=== PATIENT | female | born 1990 | race Two or more races ===

== ENCOUNTER 2020-04-20 14:31 | Outpatient (CLI) | payer OTHER ==
[~2020-04-20] VITALS: Ht 180.3 cm; Wt 77.1 kg
[2020-04-20] MEDS ORDERED: SYMBICORT 80/10.2 GM (17:08)
[2020-04-20] MEDS ORDERED: PROAIR HFA8.5 GM (17:09)
[2020-04-20] MEDS ORDERED: METHYLPREDNISOLO8 MG (17:11)
== END 2020-04-20 15:00 | disposition home or self-care (01) ==
LOC: OFIC 805 14:31
PROVIDERS: ATTEND Otolaryngology Otology & Neurotology
DX: J37.0 Chronic laryngitis (principal); K21.9 Gastro-esophageal reflux disease without esophagitis; R49.0 Dysphonia; J38.01 Paralysis of vocal cords and larynx, unilateral

== ENCOUNTER 2020-07-13 09:19 | Outpatient (CLI) | payer OTHER ==
[~2020-07-13 09:19] MED LIST: METHYLPREDNISOLO8 MG; PROAIR HFA8.5 GM; SYMBICORT 80/10.2 GM
== END 2020-07-13 10:15 | disposition home or self-care (01) ==
LOC: OFIC 805 09:19
PROVIDERS: ATTEND Otolaryngology Otology & Neurotology
DX: J37.0 Chronic laryngitis (principal); R49.0 Dysphonia; K21.9 Gastro-esophageal reflux disease without esophagitis

== ENCOUNTER 2021-01-23 08:29 | Outpatient (CLI) | payer OTHER | END 2021-01-23 10:03 | disposition home or self-care (01) | LOC: OFIC 805 08:29 | PROVIDERS: ATTEND Otolaryngology Otology & Neurotology | DX: J37.0 Chronic laryngitis (principal); K21.9 Gastro-esophageal reflux disease without esophagitis; R49.0 Dysphonia; J38.01 Paralysis of vocal cords and larynx, unilateral ==

== ENCOUNTER 2021-02-19 15:19 | Outpatient (CLI) | payer OTHER | END 2021-02-19 15:48 | disposition home or self-care (01) | LOC: OFIC 805 15:19 | PROVIDERS: ATTEND Otolaryngology Otology & Neurotology | DX: F42.3 Hoarding disorder (principal); K21.9 Gastro-esophageal reflux disease without esophagitis; J37.0 Chronic laryngitis ==

== ENCOUNTER 2023-02-20 09:02 | Outpatient (CLI) | payer OTHER | END 2023-02-20 09:24 | disposition home or self-care (01) | LOC: SONOGRAMA 09:02 | PROVIDERS: ATTEND Obstetrics & Gynecology | DX: N84.0 Polyp of corpus uteri (principal) ==